=== PATIENT | female | born 1950 | race Caucasian/White ===

== ENCOUNTER 2018-04-22 19:20 | Observation (INO) ==
[2018-04-22 19:53] LABS: Basophils # 0.1 K/mcL (0.0-0.2); Eosinophils # 0.6 K/mcL (0.0-0.6); Eosinophils % 10.1 %; Hematocrit 36.8 % (35.3-44.9); Hemoglobin 12.4 g/dL (11.5-15.4); Immature Granulocytes % 0.3 % (0-4); Lymphocytes # 0.9 K/mcL (0.6-4.6); Mean Corpuscular HGB Conc 33.7 g/dL (31.6-35.5); Mean Corpuscular Hemoglobin 31.2 pg (28.0-33.3); Mean Corpuscular Volume 92.5 fL (83.0-100.0); Mean Platelet Volume 9.2 fL (9.4-12.4); Monocytes # 0.5 K/mcL (0.0-1.3); Monocytes % 8.7 %; Platelet Count 293 K/mcL (140-400); Red Blood Count 3.98 M/mcL (3.82-4.97); Red Cell Distribution Width 12.5 % (11.5-14.5); Segmented Neutrophils % 64.9 %
--- NOTE | 2018-04-22 19:55 | Emergency Department Note ---
Disposition Clinical Impression: Elevated d-dimer Chest pain Qualifiers: Chest pain type: unspecified Qualified Code(s): R07.9 - Chest pain, unspecified Disposition: Admitted As Inpatient Condition: Fair Time of Disposition: 00:38 Chest Pain HPI - General Stated Complaint: Chest Pain Time Seen by Provider: 04/22/18 19:23 Vital Signs Reviewed: Yes Nursing Notes Reviewed: Yes - History of Present Illness HPI Narrative: 67-year-old female presents from home with daughter bedside for evaluation of chest pain. This started 2 days ago, constant, and has been getting progressively worse throughout the evening. She describes a bandlike sensation with heaviness which radiates to her jaw. She does not have nausea or vomiting. She does have baseline shortness of breath secondary to COPD however no worsening of her baseline shortness of breath with these symptoms. Her symptoms are improved with her home metered-dose inhalers. She also notes a change in her baseline cough which she describes as coughing more frequently. Nonproductive. 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 3 months ago, she had surgery and completed her radiation. No chemotherapy. PMH: Hypertension, hyperlipidemia, COPD. Remote history of smoking. No history of CAD or ACS. No history diabetes. ROS: Positive: As above Negative: Fever, chills, nausea, vomiting, palpitations, arm heaviness, numbness, tingling, weakness, dizziness, abdominal pain, change in urination or bowel habits. - Related Data Home Medications Medication Instructions Recorded Confirmed Albuterol Sulfate [Ventolin Hfa] 2 puff IH Q4H PRN 04/20/16 04/23/18 Duloxetine HCl [Cymbalta] 60 mg PO DAILY 04/20/16 04/23/18 Fluticasone/Salmeterol [Advair 1 puff IH BID 04/20/16 04/23/18 250-50 Diskus] Ibuprofen [Motrin] 800 mg PO Q8HR PRN 04/20/16 04/23/18 Lidocaine Patch [Lidoderm 5% patch] 1 each TP DAILY 04/20/16 04/23/18 Albuterol Neb [Proventil Neb] 2.5 mg IH TID PRN 07/18/17 04/23/18 Alendronate Sodium [Fosamax] 70 mg PO QWEEK 07/18/17 04/23/18 Cholecalciferol (Vitamin D3) 5,000 unit PO DAILY 07/18/17 04/23/18 [Vitamin D3] Omeprazole [PriLOSEC] 20 mg PO DAILY 07/18/17 04/23/18 Lisinopril [Zestril] 20 mg PO DAILY 07/28/17 04/23/18 Pravastatin Sodium [Pravachol] 20 mg PO DAILY 07/28/17 04/23/18 Previous Rx's Medication Instructions Recorded Docusate [Colace] 100 mg PO BID #30 capsule 07/31/17 Anastrozole [Arimidex] 1 mg PO DAILY #90 tablet 11/23/17 Allergies Allergy/AdvReac Type Severity Reaction Status Date / Time No Known Allergies Allergy Verified 11/23/17 09:44 All systems ED: reviewed and negative except as stated. Review of Systems: As Per HPI Chest Pain PMH - Past Medical History Medical history: Reports: arthritis, asthma, cancer, COPD, hypertension Surgical history: Reports: orthopedic, other Psychiatric history: Reports: anxiety, depression - Social History Smoking Status: Former smoker Alcohol use: Reports: none Drug use: Reports: none Physical Exam Vital Signs Reviewed General: Patient is alert, oriented, and in no acute distress. Head: atraumatic, normocephalic Eye: normal appearance, PERRL, EOMI, no scleral icterus, no conjunctival injection ENT: mucous membranes moist, normal external ear exam Neck: normal inspection, trachea midline, full ROM Chest: normal inspection, symmetric chest rise Respiratory: Good respiratory effort. Bilateral breath sounds are clear without wheezing, crackles, or rhonchi. Cardiovascular: Regular rate and rhythm. No clicks, rubs, gallops, or murmors. Normal heart sounds. Abdomen: Bowel sounds present normoactive x-4 quadrants. Abdomen is soft, nondistended, and nontender. No guarding or rebound. No organomegaly noted. Musculoskeletal: Spontaneously moving all extremities. Skin: warm, dry, intact. Neuro: Alert and oriented x4. Sensation light touch intact. Psych: Patient's affect is appropriate for situation. Course Course Narrative: EKG dated 04/22/2018 at 19:24 interpreted as sinus rhythm with rate of 76. OK 176, QRS 93, QTC 449. Normal axis. Nonspecific ST-T changes. Poor R-wave progression. Compared to previous EKG dated 07/27/2017 showing no acute ischemic changes or comparison. Clinical concern is for cardiac versus pulmonary etiology. Chest x-ray, though it shows no acute process per radiology read there is concern of possible posterior left lower lobe mass seen on prior CT poorly evaluated on this x-ray. CTA chest ordered both because patient has elevated d-dimer as well as to reevaluate the left lower lobe; no left lower lobe mass seen per radiology read on this evaluation. No PE. Serum hematology is unremarkable. Serum chemistries unremarkable. EKG is nonspecific. Initial troponin is within normal limits. Given patient's history, it is prudent to admit for continued cardiac evalu ation. I discussed the above with the patient. She is agreeable to admission for continued cardiac evaluation monitoring. I discussed the above with the admitting hospitalist, Dr. Butt, agrees to accept the patient for chest pain to rule out acute coronary syndrome. Chest X-Ray 04/22/18 19:23 IMPRESSION: No evidence of acute process in the chest. Of note, the patient is known to have a posterior left lower lobe mass seen on previous CT. This region of the lung is not adequately evaluated on this study. D/ / Alonso Singleton / Alonso Singleton Interpreting Provider: Alonso Singleton Chest CTA 04/22/18 20:55 IMPRESSION: No evidence of pulmonary embolism or acute pulmonary abnormality. D/ / Jake Michel MD / Jake Michel MD Interpreting Provider: Jake Michel MD Vital Signs Temperature 98.5 F 04/22/18 19:24 Pulse Rate 79 04/22/18 19:24 Respiratory Rate 18 04/22/18 19:24 Blood Pressure 118/74 04/22/18 19:24 O2 Sat by Pulse Oximetry 100 04/22/18 19:24 Temperature 97.9 F 04/22/18 23:55 Pulse Rate 76 04/22/18 23:55 Respiratory Rate 16 04/22/18 23:55 Blood Pressure 147/81 04/22/18 23:55 O2 Sat by Pulse Oximetry 98 04/22/18 23:55 Oxygen Delivery Oxygen Delivery Room Air Chest Pain - Lab Data Result diagrams: 04/22/18 19:35 04/22/18 19:35 Lab Results 04/22/18 04/22/18 04/22/18 Range/Units 19:35 19:35 19:35 WBC 6.1 (4.3-11.1) K/mcL RBC 3.98 (3.82-4.97) M/mcL Hgb 12.4 (11.5-15.4) g/dL Hct 36.8 (35.3-44.9) % MCV 92.5 (83.0-100.0) fL MCH 31.2 (28.0-33.3) pg MCHC 33.7 (31.6-35.5) g/dL RDW 12.5 (11.5-14.5) % Plt Count 293 (140-400) K/mcL MPV 9.2 L (9.4-12.4) fL Immature Gran % 0.3 (0-4) % Seg Neutrophils % 64.9 % Lymphocytes % 15.0 % Monocytes % 8.7 % Eosinophils % 10.1 % Basophils % 1.0 % Neutrophils # 4.0 (1.6-8.9) K/mcL Lymphocytes # 0.9 (0.6-4.6) K/mcL Monocytes # 0.5 (0.0-1.3) K/mcL Eosinophils # 0.6 (0.0-0.6) K/mcL Basophils # 0.1 (0.0-0.2) K/mcL PT 11.5 (9.4-12.1) Seconds INR 1.0 APTT 34.2 (26.0-36.0) Seconds D-Dimer 671 H (0-500) ng/mLFEU Sodium 140 (136-145) mEq/L Potassium 3.7 (3.5-5.1) mEq/L Chloride 107 (98-107) mEq/L Carbon Dioxide 24 (23-29) mEq/L BUN 13 (8-23) mg/dL Creatinine 0.69 (0.60-1.20) mg/dL Est GFR ( Amer) > 60 (> 60) Est GFR (Non-Af Amer) > 60 (> 60) BUN/Creatinine Ratio 19 (6-26) Glucose 116 H (70-105) mg/dL Calculated Osmolality 291 (280-300) Calcium 8.8 (8.6-10.3) mg/dL Total Bilirubin 0.3 (0.3-1.0) mg/dL Direct Bilirubin 0.1 (0.0-0.2) mg/dL Indirect Bilirubin 0.2 (0.0-1.2) mg/dL AST 10 L (13-39) Units/L ALT 11 (7-52) Units/L Alkaline Phosphatase 70 (34-104) Units/L Troponin I < 0.03 (< 0.04) ng/mL Serum Total Protein 6.4 (6.4-8.9) g/dL Albumin 4.1 (3.5-5.7) g/dL Globulin 2.3 L (2.4-3.5) g/dL Albumin/Globulin Ratio 1.8 (1.1-2.2) Lipase 17 (11-82) Units/L Heart Score - Score History: Moderately Suspicious EKG: Non Specific repolarisation Disturbance Age: Greater than 65 Risk Factors: Equal/Greater than 3 risk factor or history of atherosclerotic disease Troponin: Less than normal limit HEART Score Total: 6 Attestation Statement - Attestation Attestation: I, Nathaniel Israel, examined this patient and my medical decision-making was reviewed with the ADOBE DEVELOPER/PA/Advanced Practice Nurse/Resident Physician. I agree with the documented findings, disposition and treatment plan as described except to the extent set forth below. 67-year-old female presents emergency by with concerns of chest pain. Patient states the pain as a heaviness in her chest that radiates to her right jaw. Patient has a history of COPD but states that her symptoms feel different than her usual COPD. Patient denies fever, chills, vomiting, diarrhea, syncope. Laboratory evaluation largely within normal limits and EKG did not show evidence of STEMI or other dysrhythmia. Patient will be admitted to the hospitalist for further care and evaluation of her chest pain to rule out ACS.
[2018-04-22 20:01] LABS: Prothrombin Time 11.5 Seconds (9.4-12.1)
[2018-04-22 20:04] LABS: Activated Partial Thrombo Time 34.2 Seconds (26.0-36.0)
[2018-04-22 20:14] LABS: BUN/Creatinine Ratio 19 (6-26); Blood Urea Nitrogen 13 mg/dL (8-23); Calcium 8.8 mg/dL (8.6-10.3); Carbon Dioxide 24 mEq/L (23-29); Chloride 107 mEq/L (98-107); Glucose 116 mg/dL (70-105); Osmolality,Calculated 291 (280-300); Potassium 3.7 mEq/L (3.5-5.1); Sodium 140 mEq/L (136-145); eGFR For Non-African Americans > 60 (> 60)
[2018-04-22] MEDS ORDERED: Ipratropium/Albuterol Neb 3 ML IH ONE (20:14)
[2018-04-22 20:15] LABS: Troponin I < 0.03 ng/mL (< 0.04)
[2018-04-22 20:22] LABS: Alanine Aminotransferase 11 Units/L (7-52); Albumin 4.1 g/dL (3.5-5.7); Albumin/Globulin Ratio 1.8 (1.1-2.2); Alkaline Phosphatase 70 Units/L (34-104); Aspartate Amino Transferase 10 Units/L (13-39); Bilirubin,Direct 0.1 mg/dL (0.0-0.2); Bilirubin,Indirect 0.2 mg/dL (0.0-1.2); Bilirubin,Total 0.3 mg/dL (0.3-1.0); Globulin 2.3 g/dL (2.4-3.5); Lipase 17 Units/L (11-82); Total Protein 6.4 g/dL (6.4-8.9)
[2018-04-22] MEDS ORDERED: Isovue-370 500 ML INFUS..BTL IV ONE (20:55)
[2018-04-22] MEDS ORDERED: 0.9 % Sodium Chloride 1,000 ML IVC ONE (20:56)
[2018-04-22] MEDS ORDERED: Aspirin 325 MG TABLET PO ONE (22:44)
[2018-04-22] MEDS ORDERED: Naloxone 0.4 MG/ML INJ IVP PRN (23:29)
[2018-04-22] MEDS ORDERED: Nitroglycerin 0.4 MG TAB.SUBL SL PRN (23:33)
--- NOTE | 2018-04-22 23:36 | Internal Med History&Physical ---
Date of Encounter: 04/22/18 Time of Encounter: 23:34 Internal Medicine - H&P: HPI Chief complaint: Chest Pain History of present illness: Ms. Tejeda is a 67 year old female with past medical history of hypertension, hypercholesterolemia, COPD and breast cancer status post chemoradiation who presents with chest pain. Patient states that chest pain began 3 days ago. The first episode of which woke her up from sleep. She describes it as pressure- like as if somebody is pushing against her chest located diffusely across her chest, radiating to her neck. She describes the discomfort as 4 out of 10 in intensity. Symptoms aggravated with cough and deep breathing. Patient took ibuprofen which seemed to help. Discomfort lasted 15-20 minutes and resolved. Patient had a second episode of similar chest discomfort which occurred while she was sweeping the floor and doing various errands around the house. Symptoms lasted again around 15 minutes and resolved after sitting down. No associated symptoms of nausea, vomiting, diaphoresis or shortness of breath. She did check her blood pressure at time and noted a systolic of 165. She states normally her blood pressure runs in the 120s. She had a third episode which occurred while she was sitting down which subsequently prompted her to come in for evaluation. Patient states that her chest pain is different from the pain she has experienced previously around the time she was receiving radiation therapy to both breasts 09/25-10/20/2017. Initial laboratory workup was notable for an elevated d-dimer. Negative troponin. Normal EKG. CTA negative for PE or acute pulmonary abnormality. Patient received loading dose of aspirin in the ED. patient states that symptoms have since subsided. Past Med Surg Social Fam HX - Past Medical History Medical history: arthritis, asthma, cancer, COPD, hypertension Additional medical history: falls. knee pain. bilateral synchronous breast cancer. Anemia Psychiatric history: anxiety, depression - Past Surgical History Surgical History: orthopedic, other Additional surgical history: right ankle fx with hardware 2013. carpal tunnel release/ both hands unsure. shoulder replacement right unsure. right knee arthroscopy/partial menisectomy 2012. right total knee replacement 2012. Co lonoscopy 2012. EGD 2013. Left ankle ORIF 2015. US Guided B/L breast Bx 2018 - Social History Smoking Status: Former smoker Smokeless Tobacco Status: No Alcohol use: none Drug use: none - Family History Mother Hx Family Cardiac Disorders: Yes (Heart Dx.) Hx Family Endocrine Disorder: Yes (DM) Internal Medicine - H&P: Meds Albuterol Sulfate [Ventolin Hfa] 2 puff IH Q4H PRN 04/20/16 [History] Duloxetine HCl [Cymbalta] 60 mg PO DAILY 04/20/16 [History] Fluticasone/Salmeterol [Advair 250-50 Diskus] 1 puff IH BID 04/20/16 [History] Ibuprofen [Motrin] 800 mg PO Q8HR PRN 04/20/16 [History] Lidocaine Patch [Lidoderm 5% patch] 1 each TP DAILY 04/20/16 [History] Albuterol Neb [Proventil Neb] 2.5 mg IH TID PRN 07/18/17 [History] Alendronate Sodium [Fosamax] 70 mg PO QWEEK 07/18/17 [History] Cholecalciferol (Vitamin D3) [Vitamin D3] 5,000 unit PO DAILY 07/18/17 [History] Omeprazole [PriLOSEC] 20 mg PO DAILY 07/18/17 [History] Lisinopril [Zestril] 20 mg PO DAILY 07/28/17 [History] Pravastatin Sodium [Pravachol] 20 mg PO DAILY 07/28/17 [History] Docusate [Colace] 100 mg PO BID #30 capsule 07/31/17 [Rx] Anastrozole [Arimidex] 1 mg PO DAILY #90 tablet 11/23/17 [Rx] Allergy/AdvReac Type Severity Reaction Status Date / Time No Known Allergies Allergy Verified 11/23/17 09:44 All Systems PM: A 10-system review of systems was performed and is negative for pertinent findings except as documented above in the HPI. - Constitutional Constitutional: no chills, no fever(s), no night sweats - EENT Eyes: no change in vision, no discharge, no pain, no photophobia Ears: no ear discharge, no ear pain, no tinnitus Nose, mouth and throat: no dysphagia, no nasal discharge, no neck pain, no sore throat - Cardiovascular Cardiovascular ROS IM: no chest pain, no diaphoresis, no dyspnea, no lightheadedness, no palpitations, no syncope - Respiratory Respiratory: no cough, no dyspnea, no wheezing, no excessive phlegm production - Gastrointestinal Gastrointestinal: no abdominal pain, no diarrhea, no hematemesis, no hematochezia, no melena, no nausea, no vomiting - Genitourinary Genitourinary: no change in urinary stream, no dysuria, no flank pain, no hematuria - Musculoskeletal Musculoskeletal ROS IM: no numbness, no tingling - Integumentary Integumentary IM: no rash, no unusual bruising - Neurological Neurological ROS: no confusion, no convulsions, no focal weakness, no numbness, no tingling, no tremor(s) - Hematologic/Lymphatic Hematologic/Lymphatic: no easy bruising - Constitutional Vitals: Temp Pulse Resp BP Pulse Ox 98.5 F 93 17 125/93 97 04/22/18 19:24 04/22/18 21:35 04/22/18 23:16 04/22/18 23:16 04/22/18 21:35 Exam: General: Alert and oriented Skin:Normal color, no rash, no lesions. HEENT:EOM, pupils equal, round and reactive. Cardiovascular:Normal S1 & S2, no rubs, murmurs or gallops. No JVD. Pulse regular. Lungs:Normal breath sounds, no wheezes or crackles. Abdomen:Soft, non-tender, no rigidity. Extremities:No deformity, no edema or tenderness, no joint swelling or clubbing. Neurological:Normal cognition and motor skills. Pulses:Carotid and radial pulses normal +2. Rest of the physical exam is non contributory Internal Med - H&P Results - Labs CBC & Chem 7: 04/22/18 19:35 04/23/18 01:18 Labs: Short CBC 04/22/18 Range/Units 19:35 WBC 6.1 (4.3-11.1) K/mcL Hgb 12.4 (11.5-15.4) g/dL Hct 36.8 (35.3-44.9) % Plt Count 293 (140-400) K/mcL Neutrophils # 4.0 (1.6-8.9) K/mcL BMP 04/22/18 19:35 Sodium 140 Potassium 3.7 Chloride 107 Carbon Dioxide 24 BUN 13 Creatinine 0.69 Glucose 116 H Calcium 8.8 Cardiac Enzymes 04/22/18 Range/Units 19:35 Troponin I < 0.03 (< 0.04) ng/mL Liver Function 04/22/18 Range/Units 19:35 Total Bilirubin 0.3 (0.3-1.0) mg/dL Direct Bilirubin 0.1 (0.0-0.2) mg/dL AST 10 L (13-39) Units/L ALT 11 (7-52) Units/L Alkaline Phosphatase 70 (34-104) Units/L Albumin 4.1 (3.5-5.7) g/dL - Impressions ITS Impressions Chest X-Ray 04/22/18 19:23 IMPRESSION: No evidence of acute process in the chest. Of note, the patient is known to have a posterior left lower lobe mass seen on previous CT. This region of the lung is not adequately evaluated on this study. D/ / Alonso Singleton / Alonso Singleton Interpreting Provider: Aolnso Singleton Chest CTA 04/22/18 20:55 IMPRESSION: No evidence of pulmonary embolism or acute pulmonary abnormality. D/ / Jake Michel MD / Jake Michel MD Interpreting Provider: Jake Michel MD - Assessment and plan (1) Chest pain Current Visit: Yes Status: Acute Assessment and plan: Patient presents with several episodes of atypical chest pain described as pressure-like, diffusely across the chest radiating to the neck occurring both with rest and exertion. Initial troponin was negative. EKG was unremarkable. CTA was negative for PE. Low suspicion for acute coronary syndrome given that pain was reproducible to palpation of the chest wall. However, given her history of breast cancer with radiation therapy as well as family history cannot completely rule out ACS. -Trend troponin -Continue patient on telemetry -We will obtain echocardiogram -Appreciate cardiology input given patient's recent history of radiation therapy Qualifiers: Qualified Code(s): R07.9 - Chest pain, unspecified (2) Elevated d-dimer Current Visit: Yes Status: Acute Assessment and plan: Patient found to have a elevated d-dimer of 671. CTA was negative for PE. No evidence of DVT on physical examination. May be attributable to treatment for breast cancer. (3) Hypertension Current Visit: Yes Status: Acute Assessment and plan: Blood pressure stable. We will monitor. Resume home antihypertensives. Qualifiers: Hypertension type: essential hypertension Qualified Code(s): I10 - Essential (primary) hypertension (4) Breast cancer Current Visit: No Status: Acute Qualifiers: Estrogen receptor status: unspecified Laterality: bilateral Qualified Code(s): C50.011 - Malignant neoplasm of nipple and areola, right female breast; C50.012 - Malignant neoplasm of nipple and areola, left female breast (5) DVT prophylaxis Current Visit: Yes Status: Acute Assessment and plan: Subcutaneous heparin - Time Spent With Patient Total time spent is greater than 50% in coordination of care (as documented) at patient's floor/unit and/or counseling patient:
[2018-04-23] MEDS ORDERED: Albuterol 2.5 MG/3 ML NEBULIZER IH PRN (00:47)
[2018-04-23] MEDS ORDERED: Acetaminophen 325 MG TABLET PO PRN (00:49)
[2018-04-23] MEDS ORDERED: traMADol 50 MG TABLET PO PRN (00:49)
[2018-04-23] MEDS ORDERED: Naloxone 0.4 MG/ML INJ IVP PRN (00:49)
[2018-04-23 02:03] LABS: Alanine Aminotransferase 10 Units/L (7-52); Albumin 3.8 g/dL (3.5-5.7); Albumin/Globulin Ratio 1.8 (1.1-2.2); Alkaline Phosphatase 60 Units/L (34-104); Aspartate Amino Transferase 10 Units/L (13-39); BUN/Creatinine Ratio 15 (6-26); Bilirubin,Total 0.2 mg/dL (0.3-1.0); Blood Urea Nitrogen 10 mg/dL (8-23); Calcium 8.4 mg/dL (8.6-10.3); Carbon Dioxide 23 mEq/L (23-29); Chloride 110 mEq/L (98-107); Cholesterol 190 mg/dL (< 200); Globulin 2.1 g/dL (2.4-3.5); Glucose 109 mg/dL (70-105); HDL Cholesterol 48 mg/dL (40-59); LDL Cholesterol,Calculated 109 mg/dL (0-99); Osmolality,Calculated 292 (280-300); Potassium 3.7 mEq/L (3.5-5.1); Sodium 141 mEq/L (136-145); Total Protein 5.9 g/dL (6.4-8.9); Triglycerides 163 mg/dL (< 150); eGFR For Non-African Americans > 60 (> 60)
[2018-04-23 03:42] VITALS: BP 136/72
[2018-04-23] MEDS ORDERED: *HR* Heparin 5,000 UNIT/ML VIAL SQ SCH (06:00)
[2018-04-23] MEDS ORDERED: Anastrozole 1 MG TABLET PO SCH (09:00)
[2018-04-23] MEDS ORDERED: Lisinopril 20 MG TABLET PO SCH (09:00)
[2018-04-23] MEDS ORDERED: Budesonide/Formoterol 80/4.5 MDI IH SCH (10:00)
[2018-04-23] MEDS ORDERED: Regadenoson 0.4 MG/5 ML SYRINGE IVP ONE (10:59)
--- NOTE | 2018-04-23 13:07 | Discharge Summary ---
<Charlie Mathis P - Last Filed: 04/23/18 14:21> - NOTES TO OUTPATIENT PROVIDER Notes to Outpatient Provider: The patient will follow-up with her primary care doctor within a week. Orders not resulted at time of discharge: Pending orders 04/23/18 09:07 NM glynn perf SPECT multi [NM] Routine Date of Encounter: 04/23/18 Time of Encounter: 01:00 - Discharge Diagnosis (1) Chest pain Priority: Primary Status: Acute Assessment and Plan: The patient has atypical chest pain, inpatient workup chest pain was negative: Serial troponin was negative <0.03. CTA chest did not show any evidence of pulmonary embolism or acute pathology. Nuclear stress test was negative for any ischemia or arrhythmia, EKG done in hospital was negative. y Qualifiers: Qualified Code(s): R07.9 - Chest pain, unspecified (2) Breast cancer Priority: Secondary Status: Chronic Qualifiers: Breast location: unspecified site of breast Estrogen receptor status: unspecified Patient sex: female Laterality: unspecified laterality Qualified Code(s): C50.919 - Malignant neoplasm of unspecified site of unspecified female breast (3) Elevated d-dimer Priority: Primary Status: Acute Assessment and Plan: Patient found to have a elevated d-dimer of 671. CTA was negative for PE. No evidence of DVT on physical examination. May be attributable to treatment for breast cancer. (4) Hypertension Priority: Secondary Status: Acute Assessment and Plan: Blood pressure stable. We will monitor. Resume home antihypertensives. Her blood pressure today is 136/72 Qualifiers: Hypertension type: essential hypertension Qualified Code(s): I10 - Essential (primary) hypertension (5) DVT prophylaxis Priority: Secondary Status: Acute Hospital course: Ms. Tejeda is a 67 year old female with past medical history of hypertension, hypercholesterolemia, COPD, post chemoradiation status of breast cancer presented to our emergency for chest pain for last 3 days. The patient was receiving radiation therapy to both breast from 09/25 -10/20/2017 .The chest pain at this time was moderate in intensity, pressure-like pain, radiating to neck, aggravated with coughing and breathing. The blood pressure was also elevated during her chest pain. The chest x-ray done in ED showed showed posterior left lower lobe mass (as seen before), otherwise no acute process. The troponin was negative. We admitted patient for chest pain workup and monitoring. The serial troponin test done in hospital was negative but d-dimer was slightly elevated. we did CTA chest that was negative for pulmonary embolism or blood clot. As she had multiple risk factor for cardiac origin of chest pain, we did the nuclear stress test on 04/23/2018 that showed normal sinus rhythm, no baseline arrhythmia noted and no evidence of ischemia, ejection fraction was 70%. The latest EKG showed normal sinus rhythm and RBB without any evidence of ischemia .Today, She is hemodynamically stable and clinically improved, so we are planning to discharge her with advice to follow-up with her primary care provider with in a week. . - Time Spent with Patient Total time spent providing and/or coordinating discharge services: - Discharge Medications Prescriptions: Aspirin 81 mg PO DAILY #30 tab.chew Home Medications: Albuterol Sulfate [Ventolin Hfa] 2 puff IH Q4H PRN 04/20/16 [History] Duloxetine HCl [Cymbalta] 60 mg PO DAILY 04/20/16 [History] Fluticasone/Salmeterol [Advair 250-50 Diskus] 1 puff IH BID 04/20/16 [History] Lidocaine Patch [Lidoderm 5% patch] 1 each TP DAILY 04/20/16 [History] Albuterol Neb [Proventil Neb] 2.5 mg IH TID PRN 07/18/17 [History] Alendronate Sodium [Fosamax] 70 mg PO QWEEK 07/18/17 [History] Cholecalciferol (Vitamin D3) [Vitamin D3] 5,000 unit PO DAILY 07/18/17 [History] Omeprazole [PriLOSEC] 20 mg PO DAILY 07/18/17 [History] Lisinopril [Zestril] 20 mg PO DAILY 07/28/17 [History] Pravastatin Sodium [Pravachol] 20 mg PO DAILY 07/28/17 [History] Docusate [Colace] 100 mg PO BID #30 capsule 07/31/17 [Rx] Anastrozole [Arimidex] 1 mg PO DAILY #90 tablet 11/23/17 [Rx] Aspirin 81 mg PO DAILY #30 tab.chew 04/23/18 [Rx] Allergies/Adverse Reactions: Allergy/AdvReac Type Severity Reaction Status Date / Time No Known Allergies Allergy Verified 11/23/17 09:44 Date of admission: 04/22/18 22:59 Primary care physician: PCP NONE The patient has no known primary care provider. The patient has been advised to follow-up with her primary doctor where she feels more convinent. Discharging clinician: Anna Lara Anticipated date of discharge: 04/23/18 - Constitutional Vitals: Temp Pulse Resp BP Pulse Ox 97.6 F 83 16 136/72 96 04/23/18 03:40 04/23/18 03:40 04/23/18 07:43 04/23/18 03:40 04/23/18 07:43 General appearance: Present: A&O X 3, pleasant, no acute distress, answers questions appropriately Exam: General: Alert and oriented Skin:Normal color, no rash, no lesions. HEENT:EOM, pupils equal, round and reactive. Cardiovascular:Normal S1 & S2, no rubs, murmurs or gallops. No JVD. Pulse regular. Lungs:Normal breath sounds, no wheezes or crackles. Abdomen:Soft, non-tender, no rigidity. Extremities:No deformity, no edema or tenderness, no joint swelling or clubbing. Neurological:Normal cognition and motor skills. Pulses:Carotid and radial pulses normal +2. Rest of the physical exam is non contributory - Patient Status Disposition: Home, Self-Care Condition: Good Functional capacity at discharge: independent ambulation Overall status at discharge: patient is progressing back to baseline - Discharge Instructions Instructions: Mesalamine (By mouth), Chest Pain (DC) Follow Up With: Yris Torres CNP [Partnered Physician] - 04/30/18 2:00 pm () NONE,PCP [Primary Care Provider] - Forms: ED Satisfaction Letter - Diet and Activity Activity: resume usual activities as tolerated Diet: low fat, low cholesterol, low salt diet <Anna Lara - Last Filed: 04/23/18 16:02> Orders not resulted at time of discharge: Pending orders 04/23/18 09:07 NM glynn perf SPECT multi [NM] Routine Date of Encounter: 04/23/18 - Discharge Diagnosis (1) Breast cancer Status: Chronic Qualifiers: Breast location: unspecified site of breast Estrogen receptor status: unspecified Patient sex: female Laterality: unspecified laterality Qualified Code(s): C50.919 - Malignant neoplasm of unspecified site of unspecified female breast (2) Chest pain Status: Acute Qualifiers: Qualified Code(s): R07.9 - Chest pain, unspecified (3) Elevated d-dimer Status: Acute (4) Hypertension Status: Acute Qualifiers: Hypertension type: essential hypertension Qualified Code(s): I10 - Essential (primary) hypertension (5) DVT prophylaxis Status: Acute Hospital course: Ms. Tejeda is a 67 year old female - Time Spent with Patient Total time spent providing and/or coordinating discharge services: Date of admission: 04/22/18 22:59 Primary care physician: PCP NONE - Constitutional Vitals: Temp Pulse Resp BP Pulse Ox 97.6 F 83 16 136/72 96 04/23/18 03:40 04/23/18 03:40 04/23/18 07:43 04/23/18 03:40 04/23/18 07:43 - Attending Attestation I examined this patient and my medical decision-making was reviewed with the Resident Physician Dr. Mathis. I agree with the documented findings, disposition and treatment plan as described except to the extent set forth below. Mr. Tejeda is a 67 y/o F with known PMH of HTN, COPD and Breast cancer pt admitted here for chest pain. She was admitted in the hospital and placed her on electronic device monitor. Serial troponin came back is negative. Patient denied any active chest pain anymore. She did go for nuclear stress test which came back is negative for any ischemia/infarction. So will discharge her home in a stable condition today. Gen: A, A, O x 3 Chest: Diminished BS b/l, no crackles: Heart: S1S2+
--- NOTE | 2018-04-24 21:16 | Electrocardiograph Report ---
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
== END 2018-04-23 14:30 | disposition home or self-care (01) ==
LOC: 3BNU 19:20 → EMEROOARM 19:20 → SUATTDRO 22:59 → 3BNU 23:30
PROVIDERS: ADMIT Pediatrics; ATTEND Family Medicine